=== PATIENT | male | born 1985 | race Caucasian/White ===

== ENCOUNTER 2017-01-29 11:32 | Emergency (ER) | payer SELFPAY ==
[~2017-01-29] VITALS: Ht 172.7 cm; Wt 102.1 kg
[~2017-01-29 11:32] MED LIST: AMOXICILLIN 50500 MG PO; BACTRIM DS 8001 TAB PO; DARVOCET-N 1001 EACH PO; KEFLEX500 M1 PO; LORTAB 5/3251 TAB PO; LOTRISONE CREAM15 G1 TP; LOVENOX 150150 MG/ML SC; MEDROL 4MG. DOSE4 MG PO; PERCOCET 10 MG1 EACH PO; SULFAMETHOXAZOL1 TA6 PO; TYLENOL W/CODEI1 TAB PO; ULTRACET 325 MG1 TAB PO; ZOFRAN4 MG PO
--- OUTSIDE RECORDS SUMMARY | 2017-01-29 11:37 | External Medical Summary Rpt ---
Author Author , Organization [employer] Address Unknown Phone Unavailable Care Team Providers Care Hose Suspender Cutter Name Role Phone TILLEY TER, TILLEY TER Unavailable Unavailable [facility] Unavailable Unavailable SERVICE, [facility] Unavailable Unavailable SERVICE, [facility] CRANOR, CRANOR Unavailable Unavailable [facility] # [id number], Unavailable Unavailable [facility] # [id number] [facility] Un[facility] Un[facility] INC, [facility] HEFFSHELBIE HEFRANK Unavailable Unavailable OZOR MAR, OZOR MAR Unavailable Unavailable OZOR MAR, OZOR MAR Unavailable Unavailable [facility], Unavailable Unavailable PLLC, [facility] Purpose Continuity of Care Document - 06-20-2013 through 2016 Problems Code Diagnosis DOS Provider Status R4182 ALTERED 05-17-2016 [facility] MENTAL AMBULANCE STATUS SERVICE UNSPECIFIED [id number] POISON 05-17-2016 [facility] ACCIDENTAL SERVICE UNINTENTION AL INIT ENC [id number] POISONING 05-17-2016 [facility] INITIAL ENCOUNTER R401 STUPOR 02-26-2016 [facility] AMBULANCE SERVICE R51 HEADACHE 02-26-2016 [facility] Z720 TOBACCO USE 02-26-2016 [facility] R112 NAUSEA WITH 08-27-2015 [facility], UNSPECIFIED [facility] R197 DIARRHEA 08-27-2015 [facility] UNSPECIFIED PH[facility]ICIANS, [facility] 4739 UNSPECIFIED 12-05-2013 REINA BUCIO SINUSITIS Medications Na ND Rx Da Fi Fi Am Da Di Ph RX Ph St me C No te ll ll ou ys ag ar # ys at rm s nt no ma ic us Or Da si cy ia de te s n re d IB 53 11 11 0 30 7 CV 82 MC Ac UP 74 -0 -0 0. S 57 LA ti RO 60 8- 8- 00 PH 63 UR ve FE 46 20 20 0 AR IN N 60 13 13 MA 80 5 CY DO 0 # NA MG LD 02 R TA 33 BL 2 ET HY 00 11 11 0 24 6 CV [address] 60 -0 -0 0. S 57 LA ti OC 33 8- 8- 00 PH 67 UR ve OD 88 20 20 0 AR IN ON 72 13 13 MA -A 8 CY DO CE # NA TA LD SC 02 R NO 33 PH 2 N 10 -3 25 AM 00 11 11 0 21 7 CV 82 MC Ac OX 78 -0 -0 0. S 57 LA ti IC 12 8- 8- 00 PH 65 UR ve IL 61 20 20 0 AR IN LI 30 13 13 MA N 5 CY DO 50 # NA 0 LD MG 02 R 33 CA 2 PS UL E Procedures Procedure DOS Code Location Performer Comment [facility] A0427 [facility] SERVICE 6 AMBULANCE AMBULANCE ALS SERVICE SERVICE EMERGENCY TRANSPORT LEVEL 1 GROUND A0425 [facility] MILEAGE 6 AMBULANCE AMBULANCE PER SERVICE SERVICE STATUTE MILE GROUND A0425 [facility] AM[facility]ANCE PER SERVICE SERVICE STATUTE MILE AMB A0427 [facility] SERVICE 6 AMBULANCE AMBULANCE ALS SERVICE SERVICE EMERGENCY TRANSPORT LEVEL 1 THERAPEUT 82939 [facility] IC 6 [facility] INJECTION INC INC IV PUSH EACH NEW DRUG BLOOD 70527 [facility] COUNT 6 [facility] COMPLETE INC INC AUTO&[place] [address] [facility] INFUSION 6 [facility] THERAPY/P INC ROPHYLAXI S /DX 1ST TO 1 HR DRUG TEST G0480 [facility] DEFINITV [address] ID INC INC METH P DAY 1-7 DRUG CL COMPREHEN 47989 [facility] SIVE 6 [facility] METABOLIC INC INC PANEL COMPREHEN 42750 [facility] SIVE 6 [facility] METABOLIC INC INC PANEL COLLECTIO 21493 [facility] N VENOUS 6 [facility] BLOOD INC INC VENIPUNCT URE BLOOD 56447 [facility] COUNT 6 [facility] COMPLETE INC INC AUTO&[place] [address] [facility] INFUSION 6 [facility] THERAPY/P INC INC ROPHYLAXI S /DX 1ST TO 1 HR Encounters Encounter Start End Date Code Location Performer Type Date EMERGENCY 31603 [facility] 6 6 [facility] DEPARTMEN INC T VISIT LIMITED/M INOR [facility] NOR[facility] - 6 6 [facility] OUTPATIEN [facility] T EMERGENCY 05917 [facility] [place] 6 6 [facility] DEPARTMEN INC T VISIT MODERATE [facility]VERITY HOSPITAL NORTH - 6 6 [facility] OUTPATIEN [facility] NORTH - 6 6 [facility] OUTPATIEN [facility] T EMERGENCY 07950 NORTH 6 6 [facility] DEPARTMEN INC T VISIT MODERATE SEVERITY OFFICE 59669 [facility] 5 5 PHYSICIAN T VISIT S GROUP 10 MINUTES EMERGENCY 69980 REINA BUCIO 4 4 DEPARTMEN T VISIT MODERATE SEVERITY
--- OUTSIDE RECORDS SUMMARY | 2017-01-29 11:37 | External Medical Summary Rpt ---
Author Author , Organization [employer] Address Unknown Phone Unavailable Care Team Providers Care Cook Fry Name Role Phone TILLEY TER, TILLEY TER Unavailable Unavailable [facility] Unavailable Unavailable SERVICE, [facility] Unavailable Unavailable SERVICE, [facility] CRANOR, CRANOR Unavailable Unavailable [facility] # [id number], Unavailable Unavailable [facility] # [id number] [facility] Unavailable Unavailable INC, [facility] HEFFSHELBIE HEFRANK Unavailable Unavailable OZOR MAR, OZOR MAR Unavailable Unavailable OZOR MAR, OZOR MAR Unavailable Unavailable [facility], Unavailable Unavailable PLLC, [facility] Purpose Continuity of Care Document - 06-20-2013 through 2016 Problems Code Diagnosis DOS Provider Status R4182 ALTERED 05-17-2016 [facility] MENTAL AMBULANCE STATUS SERVICE UNSPECIFIED [id number] POISON 05-17-2016 [facility] ACCIDENTAL SERVICE UNINTENTION AL INIT ENC [id number] POISONING 05-17-2016 [facility] INITIAL ENCOUNTER R401 STUPOR 02-26-2016 [facility]ANCE SERVICE R51 HEADACHE 02-26-2016 [facility] Z720 TOBACCO USE 02-26-2016 [facility] R112 NAUSEA WITH 08-27-2015 [facility], UNSPECIFIED [facility] R197 DIARRHEA 08-27-2015 [facility] UNSPECIFIED [facility], [facility] 4739 UNSPECIFIED 12-05-2013 REINA BUCIO SINUSITIS Medications [...] Procedures Procedure DOS Code Location Performer Comment [facility] A0427 [facility] SERVICE 6 AMBULANCE AMBULANCE ALS SERVICE SERVICE EMERGENCY TRANSPORT LEVEL 1 GROUND A0425 [facility] MILEAGE 6 AMBULANCE AMBULANCE PER SERVICE SERVICE STATUTE MILE GROUND A0425 [facility] PER SERVICE SERVICE STATUTE MILE AMB A0427 [facility] 6 AMBULANCE AMBULANCE ALS SERVICE SERVICE EMERGENCY TRANSPORT LEVEL 1 THERAPEUT 28947 [facility] IC 6 [facility] INJECTION INC INC IV PUSH EACH NEW DRUG BLOOD 57057 [facility] COUNT 6 [facility] COMPLETE INC INC AUTO&[place] [address] [facility] INFUSION 6 [facility] THERAPY/P INC ROPHYLAXI S /DX 1ST TO 1 HR DRUG TEST G0480 [facility] DEFINITV [address] ID INC INC METH P DAY 1-7 DRUG CL COMPREHEN 06727 [facility] SIVE 6 [facility] METABOLIC INC INC PANEL COMPREHEN 10945 [facility] SIVE 6 [facility] METABOLIC INC INC PANEL COLLECTIO 31760 [facility] N VENOUS 6 [facility] BLOOD INC INC VENIPUNCT URE BLOOD 71461 [facility] COUNT 6 [facility] COMPLETE INC INC AUTO&[place] [address] [facility] INFUSION 6 [facility] THERAPY/P INC INC ROPHYLAXI S /DX 1ST TO 1 HR Encounters Encounter Start End Date Code Location Performer Type Date EMERGENCY 45319 [facility] 6 6 [facility] DEPARTMEN INC T VISIT LIMITED/M INOR [facility] NORTH - 6 6 [facility] OUTPATIEN [facility] T EMERGENCY 86028 [facility] [place] 6 6 [facility] DEPARTMEN INC T VISIT MODERATE SEVERITY HOSPITAL NORTH - 6 6 [facility] OUTPATIEN [facility] NORTH - 6 6 [facility] OUT[facility]IEN [facility] T EMERGENCY 76311 NORTH 6 6 [facility] DEPARTMEN INC T VISIT MODERATE SEVERITY OFFICE 02641 [facility] 5 5 PHYSICIAN T VISIT S GROUP 10 MINUTES EMERGENCY 51957 REINA BUCIO 4 4 DEPARTMEN T VISIT MODERATE SEVERITY
--- OUTSIDE RECORDS SUMMARY | 2017-01-29 11:38 | External Medical Summary Rpt ---
Author Author , Organization [employer] Address Unknown Phone Unavailable Care Team Providers Care Link Trainer Mechanic Name Role Phone TILLEY TER, TILLEY TER Unavailable Unavailable [facility] Unavailable Unavailable SERVICE, [facility] Unavailable Unavailable SERVICE, [facility] CRANOR, CRANOR Unavailable Unavailable [facility] # [id number], Unavailable Unavailable [facility] # [id number] [facility] Un[facility] Un[facility] INC, [facility] HEFFLEY, HEFFLEY Unavailable Unavailable OZOR MAR, OZOR MAR Unavailable Unavailable OZOR MAR, OZOR MAR Unavailable Unavailable [facility], Unavailable Unavailable PLLC, [facility], [facility] Purpose Continuity of Care Document - 06-20-2013 through 2016 Problems Code Diagnosis DOS Provider Status R4182 ALTERED 05-17-2016 [facility] MENTAL AMBULANCE STATUS SERVICE UNSPECIFIED [id number] POISON 05-17-2016 [facility] HEROIN AMBULANCE ACCIDENTAL SERVICE UNINTENTION AL INIT ENC [id number] POISONING 05-17-2016 [facility] INITIAL ENCOUNTER R401 STUPOR 02-26-2016 [facility] AMBULANCE SERVICE R51 HEADACHE 02-26-2016 [facility] Z720 TOBACCO USE 02-26-2016 [facility] R112 NAUSEA WITH 08-27-2015 [facility], UNSPECIFIED [facility] R197 DIARRHEA 08-27-2015 [facility] UNSPECIFIED [facility], [facility] 4739 UNSPECIFIED 12-05-2013 OZOR FORTUNATO SINUSITIS Medications Na ND Rx Da Fi [...] CY DO CE # NA TA LD GA 02 R NO 33 PH 2 N [...] Procedures Procedure DOS Code Location Performer Comment [facility]0425 [facility] PER SERVICE SERVICE STATUTE MILE AMB A0427 [facility] 6 AMBULANCE AMBULANCE ALS SERVICE SERVICE EMERGENCY TRANSPORT LEVEL 1 DRUG TEST G0480 [facility] DEFINITV [address] [address] ID INC INC METH P DAY 1-7 DRUG CL GROUND A0425 [facility] 6 AMBULANCE AMBULANCE [place] [address] [facility] INFUSION 6 [facility] THERAPY/P INC ROPHYLAXI S /DX 1ST TO 1 HR BLOOD 92466 [facility] COUNT 6 [facility] COMPLETE INC INC AUTO&AUTO DIFRNTL WBC THERAPEUT 64555 [facility] IC 6 [facility] INJECTION INC INC IV PUSH EACH NEW DRUG [facility] A0427 [facility] 6 AMBULANCE AMBULANCE ALS SERVICE SERVICE EMERGENCY TRANSPORT LEVEL 1 COMPREHEN 94593 [facility] SIVE 6 [facility] [place] [address] [facility] INFUSION 6 [facility] THERAPY/P INC INC ROPHYLAXI S /DX 1ST TO 1 HR BLOOD 69133 [facility] COUNT 6 [facility] COMPLETE INC INC AUTO&AUTO DIFRNTL WBC COLLECTIO 98699 [facility] N VENOUS 6 [facility] BLOOD INC INC VENIPUNCT URE COMPREHEN 34889 [facility] SIVE 6 [facility] METABOLIC INC INC PANEL Encounters Encounter Start End Date Code Location Performer Type Date EMERGENCY 09949 NOR[facility] 6 6 [facility] DEPARTMEN INC T VISIT LIMITED/M INOR [facility] [place] OUTPATIEN [facility] T EMERGENCY 47546 [facility] [place] 6 6 [facility] DEPARTMEN INC T VISIT MODERATE SEVERITY HOSPITAL NORTH - 6 6 [facility] - 6 6 [facility] OUTPATIEN [facility] T EMERGENCY 62477 NORTH 6 6 [facility] T VISIT MODERATE SEVERITY OFFICE 50931 [facility] 5 5 PHYSICIAN T VISIT S GROUP 10 MINUTES EMERGENCY 77093 REINA BUCIO 4 4 DEPARTMEN T VISIT MODERATE SEVERITY
--- OUTSIDE RECORDS SUMMARY | 2017-01-29 11:38 | External Medical Summary Rpt ---
Author Author SUNIL Wells, SUNIL Wells Organization [employer] Address Unknown Phone Unavailable
--- OUTSIDE RECORDS SUMMARY | 2017-01-29 11:38 | External Medical Summary Rpt ---
Author Author , Organization [employer] Address Unknown Phone Unavailable Care Team Providers Care Hand Stamper Name Role Phone TILLEY TER, TILLEY TER Unavailable Unavailable [facility] Unavailable Unavailable SERVICE, [facility] Unavailable Unavailable SERVICE[facility] CRANOR, CRANOR Unavailable Unavailable [facility] # [id number], Unavailable Unavailable [facility] # [id number] [facility], [facility] HEFFLEY, HEFFLEY Unavailable Unavailable OZOR MAR, OZOR MAR Unavailable Unavailable OZOR MAR, OZOR MAR Unavailable Unavailable [facility], Unavailable Unavailable PLLC, [facility], [facility] Purpose Continuity of Care Document - 06-20-2013 through 2016 Problems Code Diagnosis DOS Provider Status R4182 ALTERED 05-17-2016 [facility] MENTAL AMBULANCE STATUS SERVICE UNSPECIFIED [id number] POISON 05-17-2016 [facility] AMB[facility]ANCE ACCIDENTAL SERVICE UNINTENTION AL INIT ENC [id number] POISONING 05-17-2016 [facility] INITIAL ENCOUNTER R401 STUPOR 02-26-2016 [facility] AMBULANCE SERVICE R51 HEADACHE 02-26-2016 [facility] Z720 TOBACCO USE 02-26-2016 [facility] R112 NAUSEA WITH 08-27-2015 [facility], UNSPECIFIED [facility] R197 DIARRHEA 08-27-2015 [facility] UNSPECIFIED PHYSICIANS, [facility] 4739 UNSPECIFIED 12-05-2013 OZOR FORTUNATO SINUSITIS Medications [...] CY DO CE # NA TA LD TX 02 R NO 33 PH 2 N [...] DOS Code Location Performer Comment [facility]25 [facility] PER SERVICE SERVICE STATUTE MILE AMB A0427 [facility] 6 AMBULANCE AMBULANCE ALS SERVICE SERVICE EMERGENCY TRANSPORT LEVEL 1 DRUG TEST G0480 [facility] DEFINITV [address] ID INC INC METH P DAY 1-7 DRUG CL GROUND A0425 [facility] 6 AMBULANCE AMBULANCE [place] [address] [facility] INFUSION 6 [facility] THERAPY/P INC ROPHYLAXI S /DX 1ST TO 1 HR BLOOD 73639 [facility] COUNT 6 [facility] COMPLETE INC INC AUTO&AUTO DIFRNTL WBC THERAPEUT 14190 [facility] IC 6 [facility] INJECTION INC INC IV PUSH EACH NEW DRUG [facility] A0427 [facility] SERVICE 6 AMBULANCE AMBULANCE ALS SERVICE SERVICE EMERGENCY TRANSPORT LEVEL 1 COMPREHEN 13728 [facility] SIVE 6 [facility] [place] [address] [facility] INFUSION 6 [facility] THERAPY/P INC INC ROPHYLAXI S /DX 1ST TO 1 HR BLOOD 40781 [facility] COUNT 6 [facility] COMPLETE INC INC AUTO&AUTO DIFRNTL WBC COLLECTIO 85926 [facility] N VENOUS 6 [facility] BLOOD INC INC VENIPUNCT URE COMPREHEN 34417 [facility] SIVE 6 [facility] METABOLIC INC INC PANEL Encounters Encounter Start End Date Code Location Performer Type Date EMERGENCY 82417 NORTH 6 6 [facility] DEPARTMEN INC T VISIT LIMITED/M INOR [facility] NOR[facility] [place] 6 [facility] T EMERGENCY 97155 [facility] [place] 6 6 [facility] DEPARTMEN INC T VISIT MODERATE SEVERITY HOSPITAL NORTH - 6 6 [facility] OUTPATIEN [facility] NORTH - 6 6 [facility] OUTPATIEN [facility] T EMERGENCY 42165 NORTH 6 6 [facility]ISIT MODERATE SEVERITY OFFICE 00005 [facility] 5 5 PHYSICIAN T VISIT S GROUP 10 MINUTES EMERGENCY 83970 REINA BUCIO 4 4 DEPARTMEN T VISIT MODERATE SEVERITY
--- OUTSIDE RECORDS SUMMARY | 2017-01-29 11:38 | External Medical Summary Rpt ---
Demographics Preferred Language Welsh Marital Status Unknown Restorationist Affiliation Unknown Race Unknown Ethnic Group Unknown Author Author , Organization [employer] Address Unknown Phone Unavailable Purpose Continuity of Care Document - through 2016 Immunization No patient found.
--- OUTSIDE RECORDS SUMMARY | 2017-01-29 11:38 | External Medical Summary Rpt ---
Demographics Preferred Language Hebrew Marital Status Unknown Evangelical Affiliation Unknown Race Unknown Ethnic Group Unknown Author Author , Organization [employer] Address Unknown Phone Unavailable Purpose Continuity of Care Document - through 2016 Immunization No patient found.
[2017-01-29] MEDS ORDERED: AMOXICILLIN875 MG PO (11:57)
--- NOTE | 2017-01-29 11:58 | Urgent Treatment Center Report ---
History of Present Issue Date/Time Seen by Provider 01/29/17 1143 Visit Reason Pt arrived:Walked Presenting Problem:PT C/O RIGHT EAR AND HEAD CONGESTION SINCE SUNDAY. HAS BEEN TRYING OTC MEDICATIONS WITH NO RELIEF. Location if Accident: Onset of symptoms date/time:01/27/17 or onset unknown for: Have you (or family members/close friends) recently traveled outside the [place]? N If Yes, where/when: Have you had exposure to infectious disease within the past month? TB? Other? Specify: c/o nasal congestion, PND, right ear pressure w/ decreased hearing x 2 days. No improvement w/ robitussin, dayquil, tylenol cold, claritin. No fever, sore throat, cough. No known sick contacts. Denies ear pain or drainage from ear. Source patient Exam Limitations no limitations ALLERGIES Coded Allergies: No Known Allergies (08/27/15) History Medical History General CAD? No Angina: No DE: No Hypertension? No Hyperlipidemia? No CHF? No DVT? No PE? No COPD? No Asthma? No Anemia? No GERD? No Gastric ulcers? No GI Bleed? No Hernia? No Thyroid Problems? No Hypothyroidism? No CVA? No Seizures? No Diabetes? No Insulin Dependent: No Insulin Pump: No Home FSBS? No Renal Insuffiency? No UTI? No Stones? No BPH? No GB Disease: No Nephritic Syndrome? No Asplenia? No Hepatitis? No Sickle Cell Disease? No Arthritis? No Migraines? No Cataracts? No Glaucoma? No MRSA? No HIV? No TB? No Anxiety? No Depression? No Cancer? No More? No Immunization HX Ped.Immunizations UTD Yes DT/Tetanus > 10 Years Ago Surgical Hx Previous Surgery?Y CYST REMOVED FROM [facility] Social History Smoking Hx Smoker: Current Every Day Smoker Tobacco: Yes Type Cigarettes Packs/day < 1 Pack Alcohol Alcohol: No Review of Systems All Other Systems Reviewed and Negative Constitutional see HPI Eyes denies drainage ENT see HPI. denies: throat swelling. Respiratory see HPI Gastrointestinal denies no symptoms reported Genitourinary denies: no symptoms reported. Psychiatric/Neurological denies headache, denies other (dizziness) Physical Exam Vital Signs Vital Signs Date Time Temp Pulse Resp B/P Pulse O2 O2 Flow FiO2 Ox Delivery Rate 01/29 1140 98.5 90 20 181/97 98 General Appearance normal appearance, no apparent distress Eye Exam - bilateral eye normal exam Ear, Nose, Throat normal pharynx, nasal congestion, left EAC and TM normal, right EAC full of dark brown cerumen blocking entire view of TM Neck non-tender, supple Respiratory Status No: respiratory distress, productive cough, non productive cough. Lung Sounds anterior: lungs clear. posterior: lungs clear. bilateral: lungs clear. Cardiovascular regular rate/rhythm, no peripheral edema, no murmur Neurologic alert, oriented x 3 Mental status normal mood/affect Skin intact, normal color, warm/dry Lymphatic no adenopathy Medical Decision Making LABS/Meds/Orders Pt receiving controlled substance in ED? No Procedures FB Removal (excluding Eyes) FB Removal Risks/benefits discussed with pt/guardian? Yes Location/Suspected object Right EAC, cerumen Risk of retained FB explained to pt/guardian? Yes Progress Easily removed w/ warm soapy water irrigation. VERY large hard impacted cerumen. Immediately expresses relief of some symptoms once removed. Tm intact, bright red, bulging without visible landmarks. EAC slightly erythematous without lesions or swelling Departure Departure Time of Disposition 1153 Disposition DC Home or Self Care(routine) Clinical Impression Primary Impression: Right otitis media Qualifiers: Otitis media type: unspecified Chronicity: unspecified Qualified Code: H66.91 - Otitis media, unspecified, right ear Secondary Impressions: Impacted cerumen of right ear Condition STABLE Referrals Tommy Prince (Family) * Immediately for new or worsening symptoms, no noticeable improvement in 48-72 hours AND in 10-14 days to ensure ears are back to baseline. Patient Instructions DI for Cerumen Impaction, DI for Otitis Media (Middle Ear Infection)-Child Additional Instructions * Start antibiotic BELKIS and be sure to take as ordered for the FULL length of time although you should start to feel better in 24-48 hours. * Monitor Temp. No fever yet so if fever start, be sure to follow up. * Encourage fluids, water, gatorade, powerade, pedialyte if /toddler/child * warm compress often helps when placed over ear * sleep elevated * Cerumen was removed. You expressed immediate refief of some symptoms. You can continue claritn and start flonase but remember they take several days to notice improvement. * Immediately for new or worsening symptoms, no noticeable improvement in 48-72 hours AND in 10-14 days to ensure ears are back to baseline. Discharge Counseling Counseled pt/family regarding diagnosis, medications/RX, home care, follow up needs Prescriptions Current Visit Scripts AMOXICILLIN (Amoxicillin 875MG Tab) 875 MG PO BID #20 TAB at 1203
[2017-01-29 12:00] VITALS: BP 181/97
== END 2017-01-29 12:00 | disposition home or self-care (01) ==
LOC: UTC 11:32
PROC: 3E1B38Z Irrigation of Ear using Irrigating Substance, Percutaneous Approach (ICD-10-PCS; principal; 2017-01-29)
DX: H66.91 Otitis media, unspecified, right ear (principal); H61.21 Impacted cerumen, right ear